=== PATIENT | male | born 2000 | race African-American/Black ===

== ENCOUNTER 2020-08-05 15:08 | Emergency (ER) | payer MEDICAID, SELFPAY ==
[2020-08-05 15:19] VITALS: BP 120/80; PULSE 61; RESP 16; TEMP 37.1; O2SAT 100
--- NOTE | 2020-08-05 15:31 | ED.SKABFB ---
HPI - Skin/Abscess/Foreign Bdy General Chief complaint: Skin/Abscess/Foreign Body Stated complaint: rash Time Seen by Provider: 08/05/20 15:25 Source: patient and RN notes reviewed Mode of arrival: ambulatory Limitations: no limitations History of Present Illness HPI narrative: 20-year-old -[place] male presents to [facility] with a rash to left forearm for the past 2 days. Patient has 2cm area of tiny red raised scattered lesions on left inner forearm, denies any pain or itching to area. Patient states that he got a new tattoo to his left inner arm and wonders if could be a reaction to the ink. Patient denies any new soaps, lotions, laundry detergents, no new medications or any foods. Patient states no changes in his breathing or any difficulty with swallowing. MD complaint: rash Onset (ago): day(s) (2) Location: RUE (lower left arm) Severity: mild Related Data Home Medications Medication Instructions Recorded Confirmed Singulair 08/05/20 albuterol 08/05/20 loratadine 08/05/20 Allergies Allergy/AdvReac Type Severity Reaction Status Date / Time No Known Allergies Allergy Verified 08/05/20 15:17 Review of Systems Review of Systems: Narrative: CONSTITUTIONAL: Denies fever, chills, or sweats. EYES: Denies visual changes, redness, or discharge. ENT: Denies rhinorrhea, congestion, sore throat, or otalgia. CARDIOVASCULAR: Denies chest pain, palpitations, or edema. RESPIRATORY: Denies cough or dyspnea. GASTROINTESTINAL: Denies abdominal pain, nausea, vomiting, or diarrhea. GENITOURINARY: Denies dysuria or hematuria. SKIN: positive for left lower arm rash denies itching. MUSCULOSKELETAL: Denies back pain, joint pain, or myalgia. NEUROLOGIC: Denies headache, numbness, or weakness. PSYCHIATRIC: Positive anxiety or depression. All systems reviewed & are unremarkable except as noted in HPI and below PMFSH Past Medical History Medical History (Updated 08/06/20 @ 00:00 by Paula Constantino) Asthma Surgical History Surgical History (Updated 08/05/20 @ 15:45 by Jael Alcantara NP) No pertinent past surgical history Family History Family History (Updated 08/05/20 @ 15:46 by Jael Alcantara NP) Mother Hypertension Grandparent Diabetes mellitus Heart disease Kidney disease Social History Social History (Updated 08/05/20 @ 15:46 by Jael Alcantara NP) Smoking status: Never smoker Alcohol intake: never Substance use: current Substance use type: marijuana Living arrangements: with family Gender identity (if verbalized by the patient): Male Comments At time of signature, agree with nursing past medical, surgical, social and family history. There is no relevant family history pertinent to the presenting complaint Exam Narrative: Exam Narrative: GENERAL: Well-appearing, well-nourished, and in no acute distress. HEAD: Normocephalic, atraumatic. EYES: PERRLA and EOMI. ENT: Nares clear, no rhinorrhea or epistaxis. Mucous membranes moist.TM's normal with good light reflex, throat pink with no lesions or exudates, no tonsil enlargement. NECK: Supple.no lymphadenopathy CHEST: Clear to auscultation. No respiratory distress. HEART: Regular rate and rhythm. No murmur heard. Normal peripheral pulses. ABDOMEN: Soft, nontender, nondistended, normal active bowel sounds. EXTREMITIES: Normal range of motion. No edema. SKIN: Warm, dry,2cm area of fine red raised scattered rash to inner left forearm, denies any itching or burning pain to area, no other areas of rash, NEURO: No focal deficits. Alert and oriented x3. Course Vital Signs Vital signs: Vital Signs Temperature 37.1 C 08/05/20 15:19 Pulse Rate 61 08/05/20 15:19 Respiratory Rate 16 08/05/20 15:19 Blood Pressure 120/80 08/05/20 15:19 Pulse Oximetry 100 08/05/20 15:19 Temperature 37.1 C 08/05/20 15:19 Pulse Rate 61 08/05/20 15:19 Respiratory Rate 16 08/05/20 15:19 Blood Pressure 120/80 08/05/20
== END 2020-08-05 15:58 | disposition home or self-care (01) ==
PROVIDERS: Emergency Provider Registered Nurse
DX: L25.8 Unspecified contact dermatitis due to other agents (principal); J45.909 Unspecified asthma, uncomplicated
CPT/HCPCS: 99213; G0463